=== PATIENT | male | born 1965 | race African-American/Black ===

== ENCOUNTER → 2019-07-02 | Outpatient (CLI) | payer OTHER ==
[2019-07-02 15:41] LABS: BASO % 0.7 % (0.0-1.0); EOS # 0.1 10^3/uL (0.0-0.5); EOS % 2.8 % (0.0-3.0); HEMOGLOBIN 16.3 g/dl (13.5-17.5); LYMPH # 1.9 10^3/uL (1.5-5.0); LYMPH % 43.9 % (24.0-44.0); MEAN CORPUSCULAR HEMOGLOBIN 30.5 pg (27.0-33.0); MEAN CORPUSCULAR VOLUME 89.7 fl (80.0-96.0); MONO # 0.5 10^3/uL (0.0-0.8); NEUTROPHILS # 1.8 10^3/uL (1.5-8.5); NEUTROPHILS % 41.4 % (36.0-66.0); PLATELET COUNT, AUTOMATED 230 10^3/uL (150-450); RED BLOOD COUNT 5.35 10^6/uL (4.30-6.10); WHITE BLOOD COUNT 4.3 10^3/uL (4.0-10.0)
[2019-07-02 16:37] LABS: ERYTHROCYTE SEDIMENTATION RATE 1 mm/hr (0-20)
== END ==
LOC: M LAB 14:59
PROVIDERS: ATTEND Orthopaedic Surgery
DX: M25.562 Pain in left knee (principal)

== ENCOUNTER → 2019-07-23 | Outpatient (CLI) | payer OTHER ==
--- NOTE | 2019-07-23 15:37 | REP ---
TRIPE PHASE BONE SCAN OF THE KNEES: Following the intravenous administration of 21.8 millicuries technetium 99m MDP, patient's knees are imaged in the flow phase in the anterior and posterior projections. There is mild increased blood flow in the region surrounding a photopenic left knee prosthesis. Immediate blood pool and 3-hour delayed images are performed of the knees in various projections. Photopenic left knee prosthesis is noted. There is mild increased blood pooling along the femoral and tibial portions of the metallic prosthesis. There is also mildly increased delayed activity at these locations. I cannot exclude loosening or infection. Electronically Signed by Tor Grover MD 07/24/2019 07:17 P
== END ==
LOC: M RAD 10:44
PROVIDERS: ATTEND Orthopaedic Surgery
DX: Z96.652 Presence of left artificial knee joint (principal)
CPT/HCPCS: 78315; A9503